=== PATIENT | female | born 1990 ===

== ENCOUNTER 2018-08-29 19:17 | Emergency (ER) | payer MEDICAID ==
[2018-08-29 19:52] VITALS: BMI 26.5
--- NOTE | 2018-08-29 20:22 | ED PDOC ---
Arrival/HPI - General Chief Complaint: Back Pain Time Seen by Provider: 08/29/18 20:03 Historian: Patient - History of Present Illness Narrative History of Present Illness (Text): 08/29/18 20:22 Toya Pearson is a 27 year old female, whose past medical history includes asthma, who presents to the Emergency department complaining of vaginal bleeding and back pain. Patient states she has been experiencing intermittent vaginal bleeding over the past month with occasional back pain. Patient states today she developed worsening lower back pain with diarrhea and some dysuria. Patient note she has a history of frequent UTIs. Patient denies any fever, chills, chest pain, shortness of breath, nausea, vomiting, neck pain, headache, dizziness, or any other complaints. Symptom Onset: Gradual Symptom Course: Unchanged Activities at Onset: Light Context: Home Past Medical History - Provider Review Nursing Documentation Reviewed: Yes - Infectious Disease Hx of Infectious Diseases: None - Reproductive Currently : No - Cardiac Hx Cardiac Disorders: No - Pulmonary Hx Respiratory Disorders: Yes Hx Asthma: Yes - Neurological Hx Neurological Disorder: No - HEENT Hx HEENT Disorder: No - Renal Hx Renal Disorder: No - Endocrine/Metabolic Hx Endocrine Disorders: No - Hematological/Oncological Hx Blood Disorders: No - Integumentary Hx Dermatological Disorder: No - Musculoskeletal/Rheumatological Hx Musculoskeletal Disorders: No - Gastrointestinal Hx Gastrointestinal Disorders: No - Genitourinary/Gynecological Hx Genitourinary Disorders: No - Psychiatric Hx Psychophysiologic Disorder: Yes Hx Depression: Yes Hx Substance Use: No - Surgical History Hx Appendectomy: Yes Family/Social History - Physician Review Nursing Documentation Reviewed: Yes Family/Social History: Unknown Family HX Smoking Status: Never Smoked Hx Alcohol Use: Yes Frequency of alcohol use: Socially Hx Substance Use: No Allergies/Home Meds Allergies/Adverse Reactions: Allergies ibuprofen [From Advil] Allergy (Verified 08/29/18 19:52) ANAPHYLAXIS montelukast [From Singulair] Allergy (Verified 08/29/18 19:52) ANAPHYLAXIS Review of Systems - Physician Review All systems were reviewed & negative as marked: Yes - Review of Systems Constitutional: Normal. absent: Fevers Eyes: Normal ENT: Normal Respiratory: Normal. absent: SOB, Cough Cardiovascular: Normal. absent: Chest Pain Gastrointestinal: Diarrhea. absent: Vomiting Genitourinary Female: Dysuria, Vaginal Bleeding Musculoskeletal: Back Pain. absent: Neck Pain Skin: Normal. absent: Rash Neurological: Normal. absent: Headache, Dizziness Endocrine: Normal Hemo/Lymphatic: Normal Psychiatric: Normal Physical Exam Vital Signs Reviewed: Yes Vital Signs Temp Pulse Resp BP Pulse Ox 08/29/18 19:53 98.6 F 74 19 115/49 L 95 Temperature: Afebrile Blood Pressure: Normal Pulse: Regular Respiratory Rate: Normal Appearance: Positive for: Well-Appearing, Non-Toxic, Comfortable Pain Distress: None Mental Status: Positive for: Alert and Oriented X 3 - Systems Exam Head: Present: Atraumatic, Normocephalic Pupils: Present: PERRL Extroacular Muscles: Present: EOMI Conjunctiva: Present: Normal Mouth: Present: Moist Mucous Membranes Neck: Present: Normal Range of Motion Respiratory/Chest: Present: Clear to Auscultation, Good Air Exchange. No: Respiratory Distress, Accessory Muscle Use Cardiovascular: Present: Regular Rate and Rhythm, Normal S1, S2. No: Murmurs Abdomen: No: Tenderness, Distention, Peritoneal Signs Back: Present: Normal Inspection Upper Extremity: Present: Normal Inspection. No: Cyanosis, Edema Lower Extremity: Present: Normal Inspection. No: Edema Neurological: Present: GCS=15, CN II-XII Intact, Speech Normal Skin: Present: Warm, Dry, Normal Color. No: Rashes Psychiatric: Present: Alert, Oriented x 3, Normal Insight, Normal Concentration Medical Decision Making ED Course and Treatment: 08/29/18 20:22 Impression: 27 year old female complaining of intermittent vaginal bleeding, back pain, diarrhea, and dysuria. Plan: -- Labs, Beta-HCG -- Urinalysis -- Reassess and disposition Prior Visits: Notes and results from previous visits were reviewed. Progress Notes: 08/30/18 00:06 CT Abdomen and Pelvis: LUNG BASES: Minimal linear atelectasis or scarring in the lung bases. LIVER: Unremarkable. GALLBLADDER AND BILE DUCTS: Gallbladder is decompressed. PANCREAS: Unremarkable. SPLEEN: Unremarkable. ADRENAL GLANDS: Unremarkable. KIDNEYS, URETERS, AND BLADDER: Bladder is decompressed. There is mild left hydronephrosis and mild proximal left hydroureter, with no obstructing calculus seen. The findings are nonspecific but could possibly relate to recently passed calculus, please correlate clinically. STOMACH AND BOWEL: Unremarkable appearance of the stomach and bowel. No evidence of bowel obstruction. No evidence suggesting enteritis or colitis. APPENDIX: There are postsurgical changes in the right lower quadrant compatible with prior appendectomy. PERITONEUM: No free fluid. No free air. LYMPH NODES: No lymphadenopathy is evident. VASCULATURE: No evidence of abdominal aortic aneurysm. BONES: No aggressive appearing osseous lesion. No acute osseous pathology evident. IMPRESSION: 1. There is mild left hydronephrosis and mild proximal left hydroureter, with no obstructing calculus seen. The findings are nonspecific but could possibly relate to recently passed calculus, please correlate clinically. Electronically signed on Aug 29, 2018 11:55:30 PM EST by: Travis Watts M.D., ABDIRAHMAN Certified By [facility] Fellowship Trained MRI and CT Specialist - Scribe Statement The provider has reviewed the documentation as recorded by the Scribe Linda Ayala Provider Scribe Attestation: All medical record entries made by the Scribe were at my direction and personally dictated by me. I have reviewed the chart and agree that the record accurately reflects my personal performance of the history, physical exam, medical decision making, and the department course for this patient. I have also personally directed, reviewed, and agree with the discharge instructions and disposition. Disposition/Present on Arrival - Present on Arrival Any Indicators Present on Arrival: No History of DVT/PE: No History of Uncontrolled Diabetes: No Urinary Catheter: No History of Decub. Ulcer: No History Surgical Site Infection Following: None - Disposition Have Diagnosis and Disposition been Completed?: Yes Diagnosis: Flank pain, Kidney stones, Urinary tract infection Disposition: HOME/ ROUTINE Disposition Time: 01:00 Condition: GOOD Discharge Instructions (ExitCare): Low Back Pain in Adults, Kidney Stones in Adults, Urinary Tract Infection, Adult (DC) Prescriptions: Cephalexin [Keflex] 500 mg PO BID #14 capsule Tramadol HCl [Ultram] 50 mg PO QID #8 tab Referrals: Baljinder Cotto MD [Staff Provider] - Follow up with primary Elizabeth Curtis MD [Medical Doctor] - Follow up with primary Forms: [employer] ([employer])
[2018-08-29 20:49] LABS: URINE BILIRUBIN NEGATIVE (NEGATIVE); URINE BLOOD SMALL (NEGATIVE); URINE GLUCOSE (UA) NEGATIVE (NEGATIVE); URINE LEUKOCYTE ESTERASE NEGATIVE Leu/uL (NEGATIVE); URINE PROTEIN NEGATIVE mg/dL (<30 mg/dL); URINE UROBILINOGEN 0.2 E.U./dL (<1 E.U./dL)
[2018-08-29 21:04] LABS: BASO # 0.03 K/mm3 (0.0-2.0); BASO % 0.5 % (0.0-3.0); EOS # 0.2 (0.0-0.7); EOS % 3.5 % (1.5-5.0); HEMOGLOBIN 12.1 g/dL (12.0-16.0); LYMPH # 2.4 (1.2-3.4); MEAN CELL VOLUME 85.4 fl (80.0-105.0); MEAN CORPUSCULAR HGB CONC 32.8 g/dl (31.0-37.0); MEAN PLATELET VOLUME 9.2 fl (7.0-11.0); MONO # 0.5 (0.1-0.6); MONO % 8.1 % (1.0-6.0); RBC 4.32 10^6/uL (3.5-6.1); RED CELL DISTRIBUTION WIDTH 12.9 % (11.5-14.5); WHITE BLOOD COUNT 6.5 10^3/uL (4.5-11.0)
[2018-08-29 21:18] LABS: URINE APPEARANCE SL CLOUDY (CLEAR); URINE COLOR YELLOW (YELLOW)
[2018-08-29 21:19] LABS: URINE BACTERIA FEW /hpf
[2018-08-29 21:23] LABS: ALB/GLOB RATIO 1.3 (1.1-1.8); ALBUMIN 4.2 g/dL (3.0-4.8); ALT/SGPT 25 U/L (7-56); AST/SGOT 22 U/L (14-36); BLOOD UREA NITROGEN 15 mg/dL (7-21); CALCIUM 9.6 mg/dL (8.4-10.5); GFR NON-AFRICAN AMERICAN > 60
[2018-08-29 21:24] VITALS: BP 117/52; PULSE 69; RESP 18; O2SAT 96
[2018-08-30] MEDS ORDERED: TraMADol/Apap 37.5/325 mg Tab PO STA (00:14)
[2018-08-30 01:15] VITALS: TEMP 98.4
--- NOTE | 2018-08-30 12:35 | CT ---
Date of service: 08/29/2018 PROCEDURE: CT Abdomen and Pelvis without intravenous contrast HISTORY: r/o stone COMPARISON: Not available TECHNIQUE: Without contrast.. Contrast dose: 0 Radiation dose: Total exam DLP = 429.84 mGy-cm. This CT exam was performed using one or more of the following dose reduction techniques: Automated exposure control, adjustment of the mA and/or kV according to patient size, and/or use of iterative reconstruction technique. FINDINGS: LOWER THORAX: Unremarkable. LIVER: Unremarkable. No gross lesion or ductal dilatation. GALLBLADDER AND BILE DUCTS: Partially contracted. No calcified gallstones. No mural thickening or pericholecystic fluid appreciated. PANCREAS: Unremarkable. No gross lesion or ductal dilatation. SPLEEN: Unremarkable. ADRENALS: Unremarkable. No mass. KIDNEYS AND URETERS: No mass, calculus or hydronephrosis. No hydroureter or ureteral calculus. VASCULATURE: Unremarkable. No aortic aneurysm. No aortic atherosclerotic calcification or mural plaque present. BOWEL: Unremarkable. No obstruction. No gross mural thickening. APPENDIX: Surgical sutures at cecal apex likely reflecting prior appendectomy. PERITONEUM: Trace fluid in cul-de-sac common nonspecific. No generalized ascites. No pneumoperitoneum. LYMPH NODES: Unremarkable. No enlarged lymph nodes. BLADDER: Poorly distended. Grossly unremarkable. REPRODUCTIVE: Normal uterus. BONES: No acute fracture. OTHER FINDINGS: None. IMPRESSION: No evidence of urinary calculus or urinary tract obstruction. Trace fluid in cul-de-sac common nonspecific. Status post appendectomy. Otherwise unremarkable examination. The preliminary findings for this examination were reported by [facility] at 11:55 p.m. on 08/29/2018. There is discordance of this report with the preliminary findings. There is no evidence of hydronephrosis or hydroureter. This does not preclude the possibility of a recently passed left ureteral calculus but there is no evidence of a calculus at this time.
== END 2018-08-30 00:20 | disposition home or self-care (01) ==
LOC: ED 19:17
DX: N39.0 Urinary tract infection, site not specified (principal); N20.0 Calculus of kidney; R10.9 Unspecified abdominal pain